=== PATIENT | female | born 1965 ===

== ENCOUNTER 2024-11-11 08:21 | Day surgery (SDC) | payer OTHER ==
[~2024-11-11 08:21] MED LIST: COZAAR100 MG PO; FARXIGA10 MG PO; METFORMIN HCL850 M1 PO; ROSUVASTATIN CA20 MG PO
[2024-11-11] MEDS ORDERED: POVIDONE-IODINE 118 ML BOTT TOP ONE (12:23)
== END 2024-11-11 19:30 | disposition home or self-care (01) ==
LOC: CIR.AMB 08:21 → U 08:21 → CIR.AMB 12:45
PROVIDERS: ATTEND Obstetrics & Gynecology
DX: N85.00 Endometrial hyperplasia, unspecified (principal); N89.5 Stricture and atresia of vagina